=== PATIENT | male | born 1960 | race African-American/Black ===

== ENCOUNTER → 2017-03-02 | Outpatient (CLI) | payer BC ==
--- NOTE | 2017-03-02 19:09 | CONS ---
DATE: 03/02/2017 CONSULTATION/NEW PATIENT EVALUATION HISTORY OF PRESENT ILLNESS/SLEEP-WAKE EVALUATION: A 56-year-old gentleman who has been evaluated in the sleep center for possibility of obstructive sleep apnea-hypopnea syndrome. 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 On some of the days, he works from 10:00 a.m. until 6:00 p.m. and on that day he sleeps from 8:00 p.m. until 6:00 or 7:00 a.m. and on other days week by week, he works from 7:00 p.m. until 5:00 a.m. and on these days, he sleeps from around 6:00 a.m. until 1:00 to 2:00 p.m. FALLING ASLEEP: In any case, he does not have any problem with falling asleep. DURING SLEEP: He sleeps with his with occasional snoring. No witnessed episodes of sleep apnea have been observed. He denied significant amount of awakenings from sleep. DURING THE DAY/WAKE STATE: Slater sleepiness scale is 2 and he denied any sleepiness. PAST MEDICAL HISTORY: Positive for hypertension, acid reflux. PAST SURGICAL HISTORY: Vasectomy, tonsillectomy. MEDICATIONS: 1. Omeprazole. 2. Lisinopril. SOCIAL HISTORY: Negative for smoking. Alcohol consumption very rarely. REVIEW OF SYSTEMS: Basically negative. FAMILY HISTORY: Cancer, diabetes. PHYSICAL EXAMINATION: GENERAL: A 56-year-old -[place] gentleman without distress. VITAL SIGNS: BP 125/70, HR 98, RR 16. Height 5 feet 6-1/2 inches. Weight 222. BMI 35. Neck 16 inches in circumference. Temp is 98.4, oxygen saturation at room air 98%. HEENT: PERRLA, EOMI. Evaluation of oropharynx showed tongue protrudes midline, extremely low position of soft palate. NECK: Supple. No JVD. Thyroid is not palpable. LUNGS: Clear to percussion and to auscultation. Good air exchange. No wheezing or rhonchi. HEART: S1, S2 regular. No murmurs, gallops or rubs. ABDOMEN: Slightly obese, soft and nontender. Bowel sounds are present. No organomegaly appreciated. EXTREMITIES: No clubbing or cyanosis. EDITING INTERNSHIP: Awake, alert, and oriented x3. Cranial nerves 2 to 7 intact. There is no fasciculation or atrophy noted. No focal deficits observed. IMPRESSION: 1. Occasional snoring, extremely low position of soft palate, obesity, possible obstructive sleep apnea-hypopnea syndrome. 2. Obesity; body mass index 35. 3. Hypertension. 4. Acid reflux. 5. Status post vasectomy. PLAN: 1. Polysomnography for evaluation of patient's breathing during sleep. 2. CPAP/BiPAP titration if sleep study confirms obstructive sleep apnea-hypopnea syndrome. 3. Preferable position during sleep on the side. 4. No driving if patient feels any sleepiness. Patient is aware of civil and criminal liability for unsafe driving. 5. I will see patient for follow-up visit to explain results of the testing and following plan. Thank you very much for referring this patient for consultation. Sincerely, Colin Lino MD, PhD, FAASM. Diplomat of [place] [employer], Sleep Medicine Board by [place] [employer] [place] [employer] Quality Assurance/R&D Lab Technician of [facility] [place]
== END ==
LOC: SLEEP 14:55
PROVIDERS: ATTEND Internal Medicine
DX: R06.83 Snoring (principal); E66.9 Obesity, unspecified; I10 Essential (primary) hypertension; K21.9 Gastro-esophageal reflux disease without esophagitis; Z68.35 Body mass index [BMI] 35.0-35.9, adult; Z98.890 Other specified postprocedural states; Z79.899 Other long term (current) drug therapy
CPT/HCPCS: 99211

== ENCOUNTER 2020-04-22 07:14 | Day surgery (SDC) | payer BC ==
[2020-04-20 10:47] VITALS: BMI 38.7
[~2020-04-22 07:14] MED LIST: LACTATED RINGERS 1,000 ML IV SCH; LIDOCAINE 1% (10MG/ML) FOR IV START INTRADERMA PRN
[2020-04-22] MEDS ORDERED: LACTATED RINGERS 1,000 ML IV ONE (07:41)
[2020-04-22] MEDS ORDERED: PROPOFOL 10 MG/ML 20 ML VIAL IV ONE (08:02)
--- NOTE | 2020-04-22 08:04 | P.GSHP ---
History of Present Illness H&P Date: 04/22/20 CHIEF COMPLAINT: Colon screen HISTORY OF PRESENT ILLNESS: The patient is a 59-year-old male who presents for colon screen. Lower endoscopy was offered for further evaluation and management. PAST MEDICAL HISTORY: Please see list. PAST SURGICAL HISTORY: Please see list. MEDICATIONS: Please see list. ALLERGIES: Please see list. SOCIAL HISTORY: No illicit drug use FAMILY HISTORY: No reports of Crohn disease or ulcerative colitis. REVIEW OF ORGAN SYSTEMS: CONSTITUTIONAL: No reports of fevers or chills. PHYSICAL EXAM: VITAL SIGNS: Stable GENERAL: Well-developed pleasant in no acute distress. HEENT: No scleral icterus. Extraocular movements grossly intact. Moist buccal mucosa. NECK: Supple without lymphadenopathy. CHEST: Unlabored respirations. Equal bilateral excursions. CARDIOVASCULAR: Regular rate and rhythm. Distal 2+ pulses. ABDOMEN: Soft, nontender, nondistended. MUSCULOSKELETAL: No clubbing, cyanosis, or edema. ASSESSMENT: 1. Colon screen. PLAN: 1. Recommend proceeding with a lower endoscopy Past Medical History Past Medical History: Diabetes Mellitus, GERD/Reflux, Hyperlipidemia, Hypertension History of Any Multi-Drug Resistant Organisms: None Reported Past Surgical History: Tonsillectomy Additional Past Surgical History / Comment(s): COLONOSCOPY Past Anesthesia/Blood Transfusion Reactions: No Reported Reaction Smoking Status: Never smoker - Past Family History Father Family Medical History: Cancer Medications and Allergies Home Medications Medication Instructions Recorded Confirmed Type Atorvastatin [Lipitor] 40 mg PO DAILY 04/20/20 04/20/20 History Lisinopril 20 mg PO DAILY 04/20/20 04/20/20 History Omeprazole 20 mg PO DAILY 04/20/20 04/20/20 History metFORMIN HCL [Glucophage] 500 mg PO HS 04/20/20 04/20/20 History Allergies Allergy/AdvReac Type Severity Reaction Status Date / Time No Known Allergies Allergy Verified 04/20/20 10:24 Surgical - Exam Vital Signs Temp Pulse Resp BP Pulse Ox 97.8 F 78 18 189/78 98 04/22/20 07:34 04/22/20 07:34 04/22/20 07:34 04/22/20 07:34 04/22/20 07:34
--- NOTE | 2020-04-22 08:27 | P.PCN ---
Date of Procedure: 04/22/20 Description of Procedure: PREOPERATIVE DIAGNOSIS: Colonoscopy screening. POSTOPERATIVE DIAGNOSIS: Midtransverse colon polyp OPERATION: Colonoscopy to the cecum Colonoscopy with cold forceps biopsy midtransverse colon SURGEON: Jinny Joseph MD. ANESTHESIA: MAC. INDICATIONS: The patient is a 59-year-old male who presents for colonoscopy screening. Last colonoscopy over 5 years. Benefits and risks were described and informed consent was obtained. DESCRIPTION OF PROCEDURE: The patient had undergone Suprep. He had been brought into the operating room and laid in the left lateral decubitus position. After adequate intravenous sedation, the rectum was examined with 2% lidocaine jelly. No external hemorrhoids were encountered. The rectal tone was within normal limits. No lesions were palpated in the rectal vault. An Olympus colonoscope was advanced to the cecum. The prep was excellent with clear visualization of the mucosal folds. The scope was removed with visualization of each mucosal fold. No scattered diverticulosis was encountered. At the mid transverse colon, 3 mm hyperplastic polyp was excised with cold forceps. No evidence of focal colitis was found. Retroflexion of the scope demonstrated grade 1 internal hemorrhoids without active bleeding or inflammation. The colon was desufflated. The patient had tolerated the procedure well. Withdrawal time was over 6 minutes. FINDINGS: Aronchick preparation quality scale 1 (1-5) No internal hemorrhoids No external prolapsed hemorrhoids. No arteriovenous malformations. At the mid transverse colon, 3 mm hyperplastic polyp was excised with cold forceps. No focal colitis. RECOMMENDATIONS: Recommend cologaurd in 5 years, 2024 Plan - Discharge Summary Discharge Rx Participant: No New Discharge Prescriptions: Continue metFORMIN HCL [Glucophage] 500 mg PO HS Atorvastatin [Lipitor] 40 mg PO DAILY Lisinopril 20 mg PO DAILY Omeprazole 20 mg PO DAILY Discharge Medication List Atorvastatin [Lipitor] 40 mg PO DAILY 04/20/20 [History] Lisinopril 20 mg PO DAILY 04/20/20 [History] Omeprazole 20 mg PO DAILY 04/20/20 [History] metFORMIN HCL [Glucophage] 500 mg PO HS 04/20/20 [History] Follow up Appointment(s)/Referral(s): Jinny Joseph MD [STAFF PHYSICIAN] - As Needed Patient Instructions/Handouts: Colorectal Polyps (DC), *Surgery [facility] - (Anesthesia) Endoscopy Discharge Instructions Activity/Diet/Wound Care/Special Instructions: Recommend Cologaurd in 5 years, 2024 Discharge Disposition: HOME SELF-CARE
[2020-04-23 15:35] LABS: Glucose,Whole Blood 106 mg/dL (75-99)
[2020-04-23 15:35] LABS: Glucose,Whole Blood 107 mg/dL (75-99)
[2020-04-24 09:17] VITALS: BP 103/64; PULSE 74; RESP 16; TEMP 97.8
--- NOTE | 2020-04-24 15:00 | CDI ---
Date: 04.24.2020 CDS/O And M Supervisor Name: Coby Adams Phone: If any questions, call Breonna Hernandez Sandblast Or Shotblast Equipment Tender at [phone] Patient Name: Catr[address] St Admit Date: 04.22.20 Discharge Date: 04.22.20 ATTENTION: The [facility] Coding Staff appreciate your assistance in clarifying documentation. Please respond to the clarification below the line at the bottom and electronically sign. The [facility] Coding staff will review the response and follow-up if needed. Please note: Queries are made part of the Legal Health Record. If you have any questions, please contact the Sandblast Or Shotblast Equipment Tender. Dear Dr. Joseph In the description of your colonoscopy report he documented retroflexion of the scope demonstrated grade 1 internal hemorrhoid but under findings you documented no internal hemorrhoids. Please document whether grade 1 internal hemorrhoids were found during procedure. Thank you for your kind consideration. Retroflexion of the scope demonstrated no internal hemorrhoids. See corrected report KM 04/24/20 @ 22:59 MTDD
== END 2020-04-22 09:06 | disposition home or self-care (01) ==
LOC: ORWHC2ENDO 07:14
PROVIDERS: ATTEND Surgery Plastic and Reconstructive Surgery
DX: Z12.11 Encounter for screening for malignant neoplasm of colon (principal); D12.3 Benign neoplasm of transverse colon; K63.89 Other specified diseases of intestine; Z86.010 Personal history of colon polyps; E11.9 Type 2 diabetes mellitus without complications; K21.9 Gastro-esophageal reflux disease without esophagitis; E78.5 Hyperlipidemia, unspecified; I10 Essential (primary) hypertension; E66.01 Morbid (severe) obesity due to excess calories; Z68.38 Body mass index [BMI] 38.0-38.9, adult; Z90.89 Acquired absence of other organs; Z98.890 Other specified postprocedural states; Z79.899 Other long term (current) drug therapy; Z79.84 Long term (current) use of oral hypoglycemic drugs; Z80.9 Family history of malignant neoplasm, unspecified
CPT/HCPCS: 45380; 88305; J2704

== ENCOUNTER → 2021-07-16 | Outpatient (CLI) | payer OTHER ==
--- NOTE | 2021-07-16 15:58 | CT ---
EXAMINATION TYPE: CT abdomen pelvis w con DATE OF EXAM: 07/16/2021 COMPARISON: None. HISTORY: diverticulitis CT DLP: 1623.7 mGycm, Automated Exposure Control for Dose Reduction was Utilized. CONTRAST: CT scan of the abdomen and pelvis is performed with oral and with IV Contrast, patient injected with 100 mL of Isovue 300. FINDINGS: LUNG BASES: No significant abnormality is appreciated. LIVER/GB: No significant abnormality is appreciated. PANCREAS: No significant abnormality is seen. SPLEEN: No significant abnormality is seen. ADRENALS: No significant abnormality is seen. KIDNEYS: Symmetric cortical medullary uptake and excretion without hydronephrosis seen bilaterally. BOWEL: The oral contrast reaches level of cecum making evaluation distal bowel slightly suboptimal. N o suspicious small or large bowel dilatation. Terminal ileum appears within normal limits coronal kaur ge 55. No diverticulosis or CT evidence for acute diverticulitis. PROSTATE/SEMINAL VESICLES: Prostate gland upper limits of normal in size. Some scattered bilateral pe lvic phleboliths. LYMPH NODES: No greater than 1cm abdominal or pelvic lymph nodes are appreciated. OSSEOUS STRUCTURES: Slight grade 1 retrolisthesis L5 on S1. Feygooly-tf-lxdrri disc space narrowing w ith vacuum disc phenomenon L5-S1 level, sclerosis involving the superior S1 vertebra is present. OTHER: Small fat-containing umbilical hernia. IMPRESSION: No CT evidence for significant colonic diverticulosis or acute diverticulitis.
== END | disposition home or self-care (01) ==
LOC: RADCTMAIN 13:04
PROVIDERS: ATTEND Surgery Plastic and Reconstructive Surgery
DX: K42.9 Umbilical hernia without obstruction or gangrene (principal)
CPT/HCPCS: 82565; 84520; 74177; 36415; Q9967

== ENCOUNTER 2021-08-04 06:39 | Day surgery (SDC) | payer BC, OTHER ==
[2021-07-30 10:57] VITALS: BMI 38.1
[2021-08-04] MEDS ORDERED: LACTATED RINGERS 1,000 ML IV SCH (07:19)
[2021-08-04 08:02] VITALS: TEMP 97.1
[2021-08-04] MEDS ORDERED: LIDOCAINE 1% (10MG/ML) FOR IV START INTRADERMA ONE (08:08)
[2021-08-04 08:09] LABS: Glucose,Whole Blood 91 mg/dL (75-99)
[2021-08-04] MEDS ORDERED: PROPOFOL 10 MG/ML 20 ML VIAL IV ONE (08:30)
--- NOTE | 2021-08-04 08:36 | P.GSHP ---
History of Present Illness H&P Date: 08/04/21 CHIEF COMPLAINT: Colon screen HISTORY OF PRESENT ILLNESS: The patient is a 60-year-old male who presents for colon screen. Lower endoscopy was offered for further evaluation and management. PAST MEDICAL HISTORY: Please see list. PAST SURGICAL HISTORY: Please see list. MEDICATIONS: Please see list. ALLERGIES: Please see list. SOCIAL HISTORY: No illicit drug use FAMILY HISTORY: No reports of Crohn disease or ulcerative colitis. REVIEW OF ORGAN SYSTEMS: CONSTITUTIONAL: No reports of fevers or chills. PHYSICAL EXAM: VITAL SIGNS: Stable GENERAL: Well-developed pleasant in no acute distress. HEENT: No scleral icterus. Extraocular movements grossly intact. Moist buccal mucosa. NECK: Supple without lymphadenopathy. CHEST: Unlabored respirations. Equal bilateral excursions. CARDIOVASCULAR: Regular rate and rhythm. Distal 2+ pulses. ABDOMEN: Soft, nontender, nondistended. MUSCULOSKELETAL: No clubbing, cyanosis, or edema. ASSESSMENT: 1. Colon screen. PLAN: 1. Recommend proceeding with a lower endoscopy Past Medical History Past Medical History: Diabetes Mellitus, GERD/Reflux, Hyperlipidemia, Hypertension, Seizure Disorder Additional Past Medical History / Comment(s): seizures as child, hx migraines, History of Any Multi-Drug Resistant Organisms: None Reported Past Surgical History: Tonsillectomy Additional Past Surgical History / Comment(s): COLONOSCOPY, Past Anesthesia/Blood Transfusion Reactions: No Reported Reaction Smoking Status: Never smoker - Past Family History Father Family Medical History: Cancer Medications and Allergies Home Medications Medication Instructions Recorded Confirmed Type Atorvastatin [Lipitor] 40 mg PO DAILY 04/20/20 08/04/21 History Omeprazole 20 mg PO DAILY 04/20/20 08/04/21 History lisinopriL 20 mg PO DAILY 04/20/20 08/04/21 History metFORMIN HCL [Glucophage] 500 mg PO HS 04/20/20 08/04/21 History Metoprolol Succinate (ER) [Toprol 25 mg PO DAILY 07/30/21 08/04/21 History XL] Allergies Allergy/AdvReac Type Severity Reaction Status Date / Time No Known Allergies Allergy Verified 08/04/21 07:51 Surgical - Exam Vital Signs Temp Pulse Resp BP Pulse Ox 97.1 F L 62 16 177/90 98 08/04/21 07:56 08/04/21 07:56 08/04/21 07:56 08/04/21 07:56 08/04/21 07:56
--- NOTE | 2021-08-04 08:58 | P.PCN ---
Date of Procedure: 08/04/21 Description of Procedure: PREOPERATIVE DIAGNOSIS: Hematochezia Family history colon cancer POSTOPERATIVE DIAGNOSIS: Hematochezia Family history colon cancer OPERATION: Colonoscopy to the cecum, ileocecal valve and appendiceal orifice. SURGEON: Jinny Joseph MD. ANESTHESIA: MAC. INDICATIONS: The patient is a 60-year-old male who presents with rectal bleeding and family history of colon cancer. Benefits and risks were described and informed consent was obtained. DESCRIPTION OF PROCEDURE: The patient had undergone Sutab prep. The patient had been brought into the operating room and laid in the left lateral decubitus position. After adequate intravenous sedation, the rectum was examined with 2% lidocaine jelly. The prostate was without nodularity. No external hemorrhoids were encountered. The rectal tone was within normal limits. No lesions were palpated in the rectal vault. An Olympus colonoscope was advanced until the cecum, ileocecal valve and appendiceal orifice were clearly viewed. The prep was good. No scattered diverticulosis was encountered. No colonic polyps were found. No evidence of focal colitis was found. Retroflexion of the scope demonstrated grade 2 internal hemorrhoids without active bleeding or inflammation. The colon was desufflated. The patient had tolerated the procedure well. Withdrawal time was over 6 minutes. FINDINGS: Aronchick preparation quality scale 2 (1-5) Internal hemorrhoids, grade 2 No external prolapsed hemorrhoids. No arteriovenous malformations. No adenomatous polyps. No focal colitis. RECOMMENDATIONS: Lower endoscopy in 3 years, 2023 due to high familial risk. Plan - Discharge Summary Discharge Rx Participant: No New Discharge Prescriptions: Continue metFORMIN HCL [Glucophage] 500 mg PO HS Atorvastatin [Lipitor] 40 mg PO DAILY lisinopriL 20 mg PO DAILY Omeprazole 20 mg PO DAILY Metoprolol Succinate (ER) [Toprol XL] 25 mg PO DAILY Discharge Medication List Atorvastatin [Lipitor] 40 mg PO DAILY 04/20/20 [History] Omeprazole 20 mg PO DAILY 04/20/20 [History] lisinopriL 20 mg PO DAILY 04/20/20 [History] metFORMIN HCL [Glucophage] 500 mg PO HS 04/20/20 [History] Metoprolol Succinate (ER) [Toprol XL] 25 mg PO DAILY 07/30/21 [History] Follow up Appointment(s)/Referral(s): Jinny Joseph MD [STAFF PHYSICIAN] - 08/10/21 Patient Instructions/Handouts: *Surgery [facility] - (Anesthesia) Endoscopy Discharge Instructions, Colonoscopy (DC) Activity/Diet/Wound Care/Special Instructions: Repeat colonoscopy in 3 years, 2023 Discharge Disposition: HOME SELF-CARE
[2021-08-04 09:11] VITALS: BP 137/90; PULSE 56; RESP 16
== END 2021-08-04 09:12 | disposition home or self-care (01) ==
LOC: ORWHC2ENDO 06:39
PROVIDERS: ATTEND Surgery Plastic and Reconstructive Surgery
DX: K92.1 Melena (principal); K64.1 Second degree hemorrhoids; Z80.0 Family history of malignant neoplasm of digestive organs; E11.9 Type 2 diabetes mellitus without complications; I10 Essential (primary) hypertension; E78.5 Hyperlipidemia, unspecified; K21.9 Gastro-esophageal reflux disease without esophagitis; G40.909 Epilepsy, unspecified, not intractable, without status epilepticus; G43.909 Migraine, unspecified, not intractable, without status migrainosus; Z90.89 Acquired absence of other organs; Z79.899 Other long term (current) drug therapy; Z79.84 Long term (current) use of oral hypoglycemic drugs; Z80.9 Family history of malignant neoplasm, unspecified
CPT/HCPCS: 45378; J2704

== ENCOUNTER 2023-09-29 05:35 | Day surgery (SDC) | payer BC, OTHER ==
[~2023-09-29 05:35] MED LIST changes: +ACETAMINOPHEN TAB 500 MG TAB PO PRN; -LACTATED RINGERS 1,000 ML IV SCH; -LIDOCAINE 1% (10MG/ML) FOR IV START INTRADERMA PRN; +MELOXICAM 7.5 MG TAB PO PRN; +ONDANSETRON 4 MG/2 ML VIAL IVP PRN; +[UNRECOGNIZED DRUG - REMARK] MISCELLANE ONE
[2023-09-29] MEDS ORDERED: DEXAMETHASONE SOD PHOSPHATE 4 MG/ML 1 ML VIAL IV ONE (06:11)
[2023-09-29] MEDS ORDERED: droPERidol 5 MG/2 ML VIAL IVP ONE (06:11)
[2023-09-29] MEDS ORDERED: ONDANSETRON 4 MG/2 ML VIAL IVP ONE (06:11)
[2023-09-29] MEDS ORDERED: LIDOCAINE 1% (10MG/ML) FOR IV START INTRADERMA PRN (06:11)
[2023-09-29] MEDS ORDERED: LACTATED RINGERS 1,000 ML IV SCH (06:11)
[2023-09-29] MEDS ORDERED: LACTATED RINGERS 1,000 ML IV ONE ×2 (06:15→09:58)
[2023-09-29] MEDS ORDERED: TAMSULOSIN 0.4 MG CAP.ER.24H PO STA (06:32)
--- NOTE | 2023-09-29 06:32 | P.GSHP ---
History of Present Illness H&P Date: 09/29/23 CHIEF COMPLAINT: Ventral hernia HISTORY OF PRESENT ILLNESS: The patient is a 62-year-old male presents with a history of swelling and pain along the abdomen from a hernia of the abdomen. Symptoms have been present for over 6 months. Now he presents for surgical intervention. PAST MEDICAL HISTORY: Please see list. PAST SURGICAL HISTORY: Please see list. MEDICATIONS: Please see list. ALLERGIES: Please see list. SOCIAL HISTORY: No illicit drug use FAMILY HISTORY: No reports of Crohn disease or ulcerative colitis. REVIEW OF ORGAN SYSTEMS: CONSTITUTIONAL: Denies any fever or chills. Denies recent weight loss or weight gain. HEENT: Denies any trouble with vision, hearing or nosebleeds. No difficulty swallowing. LYMPHATIC: The patient denies any lumps and bumps around the neck. ENDOCRINE: Denies any thyroid disorders. Denies any blood sugar glucose intolerance. RESPIRATORY: Denies pneumonia. Denies any troubles with breathing or dyspnea on exertion. CARDIOVASCULAR: Denies any chest pain, palpitations, or recent heart attacks. GASTROINTESTINAL: Denies heart burn, constipation or bright red blood per rectum. GENITOURINARY: Denies any blood in urine or increased urinary frequency. MUSCULOSKELETAL: Denies any back pain, stiffness, joint arthritis. NEUROLOGIC: Denies any numbness or tingling along the distal extremities. No seizure disorders or headaches. PSYCHIATRIC: Denies depression or suidical ideation. HEMATOLOGIC: Denies any abnormal bleeding or bruising. BREASTS: Denies any breast lumps, pain or nipple discharge. PHYSICAL EXAM: GENERAL: Well-developed pleasant male in no acute distress. HEENT: No scleral icterus. Extraocular movements grossly intact. Moist buccal mucosa. NECK: Supple without lymphadenopathy. CHEST: Unlabored respirations. Equal bilateral excursions. CARDIOVASCULAR: Regular rate and rhythm. Distal 2+ pulses. ABDOMEN: Soft, nondistended. Palpable defect of the abdomen. No peritoneal signs. MUSCULOSKELETAL: No clubbing, cyanosis, or edema. SKIN: Well perfused. PSYCH: Alert and oriented to self, place and time ASSESSMENT: 1. Ventral hernia PLAN: 1. Recommend proceeding with robotic ventral hernia repair with mesh. 2. Benefits and risks of surgical intervention was discussed including possibility of open technique. 3. DVT prophylaxis. 4. Antibiotic prophylaxis. 5. Non narcotic pain management including abdominal wall block described 6. Blood sugar glucose described. 7. Weight loss management described. 8. EKG for pre-surgical screening previously described due to hypertensive heart disease. Past Medical History Past Medical History: Diabetes Mellitus, GERD/Reflux, Hyperlipidemia, Hypertension History of Any Multi-Drug Resistant Organisms: None Reported Past Surgical History: Tonsillectomy Additional Past Surgical History / Comment(s): COLONOSCOPY Past Anesthesia/Blood Transfusion Reactions: No Reported Reaction Smoking Status: Never smoker - Past Family History Father Family Medical History: Cancer Medications and Allergies Home Medications Medication Instructions Recorded Confirmed Type Atorvastatin [Lipitor] 40 mg PO DAILY 04/20/20 09/29/23 History Omeprazole 20 mg PO DAILY 04/20/20 09/29/23 History lisinopriL 20 mg PO DAILY 04/20/20 09/29/23 History metFORMIN HCL [Glucophage] 500 mg PO HS 04/20/20 09/29/23 History Metoprolol Succinate (ER) [Toprol 25 mg PO DAILY 07/30/21 09/29/23 History XL] Allergies Allergy/AdvReac Type Severity Reaction Status Date / Time No Known Allergies Allergy Verified 09/29/23 06:17
[2023-09-29 06:45] LABS: Glucose,Whole Blood 97 mg/dL (70-110)
[2023-09-29] MEDS ORDERED: MIDAZOLAM 2 MG/2 ML VIAL IVP ONE (06:54)
[2023-09-29 06:57] LABS: Basophils % (A) 1 %; Eosinophils # (A) 0.3 k/uL (0-0.7); Eosinophils % (A) 4 %; HCT 41.2 % (39.0-53.0); HGB 13.4 gm/dL (13.0-17.5); Lymphocytes # (A) 1.7 k/uL (1.0-4.8); Lymphocytes % (A) 27 %; MCH 27.7 pg (25.0-35.0); MCHC 32.6 g/dL (31.0-37.0); MCV 84.9 fL (80.0-100.0); Mean Platelet Volume 8.1; Monocytes # (A) 0.4 k/uL (0-1.0); Monocytes % (A) 6 %; Neutrophils # (A) 3.8 k/uL (1.3-7.7); Neutrophils % (A) 60 %; Platelet Count 219 k/uL (150-450); RBC 4.85 m/uL (4.30-5.90); RDW 13.8 % (11.5-15.5); WBC 6.3 k/uL (3.8-10.6)
[2023-09-29] MEDS ORDERED: HYDROmorphone 0.5 MG/0.5 ML SYRINGE IVP PRN (07:00)
[2023-09-29 07:03] LABS: ALT 28 U/L (4-49); African American GFR (CKD) 39 (>60 ml/min/1.73 sqM); Anion Gap 8 mmol/L; Blood Urea Nitrogen 18 mg/dL (9-20); Calcium 9.8 mg/dL (8.4-10.2); Carbon Dioxide 33 mmol/L (22-30); Chloride 99 mmol/L (98-107); Glucose 95 mg/dL (74-99); Non-African American GFR(CKD) 34 (>60 ml/min/1.73 sqM); Sodium 140 mmol/L (137-145)
[2023-09-29 07:05] LABS: AST 35 U/L (17-59); Albumin 4.5 g/dL (3.5-5.0); Alkaline Phosphatase 81 U/L (38-126); Potassium 5.2 mmol/L (3.5-5.1); Total Bilirubin 0.9 mg/dL (0.2-1.3); Total Protein 7.5 g/dL (6.3-8.2)
[2023-09-29] MEDS ORDERED: HYDROmorphone (PF) 1 MG/ML ONE (07:24)
[2023-09-29] MEDS ORDERED: ROCURONIUM 10 MG/ML (5 ML VIAL) IV ONE (07:24)
[2023-09-29] MEDS ORDERED: fentaNYL (PF) 50 MCG/ML 2 ML AMP ONE (07:24)
[2023-09-29] MEDS ORDERED: SODIUM CHLORIDE 0.9% (PF) 10 ML VIAL ONE (07:24)
[2023-09-29] MEDS ORDERED: PROPOFOL 10 MG/ML 20 ML VIAL IV ONE (07:24)
[2023-09-29] MEDS ORDERED: HEPARIN SODIUM,PORCINE 5,000 UNIT/ML 1 ML VIAL ONE (07:24)
[2023-09-29] MEDS ORDERED: DEXAMETHASONE SOD PHOSPHATE 4 MG/ML 1 ML VIAL ONE (07:24)
[2023-09-29] MEDS ORDERED: WATER FOR INJECTION, STERILE 10 ML VIAL IV ONE (07:24)
[2023-09-29] MEDS ORDERED: ROPIVACAINE 5 MG/ML 30 ML VIAL ONE (07:24)
[2023-09-29] MEDS ORDERED: MIDAZOLAM 2 MG/2 ML VIAL ONE (07:24)
[2023-09-29] MEDS ORDERED: KETOROLAC 15 MG/ML 1 ML VIAL ONE (07:24)
[2023-09-29] MEDS ORDERED: NEOSTIGMINE 1 MG/ML 10 ML VIAL ONE (07:24)
[2023-09-29] MEDS ORDERED: PHENYLEPHRINE-0.9% NACL SYG 1,000 MCG/10 ML SYRINGE ONE (07:24)
[2023-09-29] MEDS ORDERED: LIDOCAINE 1% INJ 10MG/ML (20 ML MDV) ONE (07:24)
[2023-09-29] MEDS ORDERED: GLYCOPYRROLATE 0.2 MG/ML 2 ML VIAL ONE (07:24)
[2023-09-29] MEDS ORDERED: ePHEDrine 50 MG/ML 1 ML VIAL ONE (07:24)
[2023-09-29] MEDS ORDERED: KETAMINE HCL IN 0.9 % NACL 50 MG/5 ML SYRINGE ONE (07:24)
[2023-09-29] MEDS ORDERED: LIDOCAINE 0.5%-EPI 1:200,000 50 ML VIAL SQ ONE (07:30)
--- NOTE | 2023-09-29 07:31 | P.HPADDEND ---
H&P Addendum H&P Addendum Date: 09/29/23 Patient reports obtaining EKG at outside institution. He reports he is able to walk up a flight of stairs without chest pain or shortness of breath. He denies any recent cardiac testing or assessment by his PCP this year. He is unaware of his pre-existing renal disease. Pre-op EKG was obtained demonstrating sinus bradycardia otherwise normal EKG. CMP confirms worsening renal functioning. Patient notified of elevated risk of surgery for cardiac and renal complications due to his pre-existing conditions. Patient wished to proceed and witnessed by pre-op nurse, camp housekeeper and community planning technician.
[2023-09-29] MEDS ORDERED: HEPARIN SODIUM,PORCINE 5,000 UNIT/ML 1 ML VIAL SQ STA (07:56)
--- NOTE | 2023-09-29 08:12 | P.ANPRN ---
Procedure Note - Anesthesia - Nerve Block Performed Bilateral Transversus Abdominis Single Time Out Performed: Yes ([id number]) Date of Procedure: 09/29/23 Procedure Start Time: :45 Procedure Stop Time: 06:55 Location of Patient: PreOp Indication: Acute Post-Operative Pain, Dx/Pain Location, Requested by Surgeon Sedation Type: Sedate with meaningful contact maintained Preparation: Sterile Prep Position: Supine Catheter: None Needle Types: Pajunk Needle Gauge: 21 Ultrasound used to visualize needle placement: Yes Ultrasound used to observe medication spread: Yes Injectate: Other (see comment) (20ml 0.25% Ropivcaine per side. total 40ml) Blood Aspirated: No Pain Paresthesia on Injection Noted: No Resistance on Injection: Normal Image Stored and Saved: Yes Events: Uneventful and Well Tolerated
[2023-09-29 10:08] VITALS: TEMP 97.2
[2023-09-29 10:09] VITALS: RESP 16
[2023-09-29 10:10] LABS: Glucose,Whole Blood 137 mg/dL (70-110)
[2023-09-29 10:34] VITALS: BP 128/66; PULSE 91
--- NOTE | 2023-10-16 18:20 | P.OP ---
Date of Procedure: 09/29/23 Description of Procedure: SURGEON: JINNY JOSEPH MD PREOPERATIVE DIAGNOSES: 1. Initial epigastric ventral hernia with incarceration 2. Morbid obesity due to excess calories, BMI 38.1 3. Hypertensive heart disease 4. Diabetes type 2, [id number] 5. Hyperlipidemia 6. Gastroesophageal reflux disease POSTOPERATIVE DIAGNOSES: 1. Initial epigastric ventral hernia with incarceration 2. Morbid obesity due to excess calories, BMI 38.1 3. Hypertensive heart disease 4. Diabetes type 2, [id number] 5. Hyperlipidemia 6. Gastroesophageal reflux disease OPERATION: 1. Robotic-assisted da Garfield Xi laparoscopic repair of initial incarcerated epigastric ventral hernia with mesh, ventralight ST mesh 11.4 cm Anesthesia: GETA, regional, local Estimated Blood Loss (ml): 5 Pathology: 1. Incarcerated upper midline ventral hernia defect COMPLICATIONS: None. Operative Findings: 1. Upper midline epigastric ventral hernia defect 4 x 3 cm 2. Fascia repaired using #1 V-lock suture INDICATIONS: The patient is a 62-year-old male who presents with a personal h istory of abdominal wall hernias. Surgical intervention with laparoscopic versus robotic and open techniques were reviewed. Placement of mesh was also reviewed. Benefits and risks were thoroughly described. Informed consent was obtained. DESCRIPTION OF PROCEDURE: The patient was brought into the operating room and laid in supine position. After general induction, the abdomen had been prepped and draped in standard sterile fashion. Ioban draping was also placed. Prior to incision, a timeout protocol was confirmed with surgical team regarding the patient's name including procedures to be performed. The robot was primed prior to the procedure. A field block using local anesthetic was placed along hernia site including the proposed port sites. Initial incision was made with an #11 blade along the left upper quadrant. A 0 degree 5 mm laparoscopic trocar entry was performed and insufflated. Three 8 mm ports were placed along the left lateral abdominal wall under direct localiz ation after exchanging the 5-mm for an 8 mm port. Placements of the ports were 15 cm from the target anatomy and 10 cm apart. An accessory 12 mm port was placed at the right upper quadrant for exchange of mesh including sutures. The [employer] Xi robot was previously primed, prepped and draped then docked from the right side of the patient onto the left side of the patient. I then sat at the robot [employer] Xi console where working arms of the robot including Bovie cautery connected to robotic scissors, needle dedicated truck driver, and graspers placed by the regulatory assistant. Incarcerated omental contents were found along the upper midline defect. The defects were reduced with preperitoneal fat including the falciform ligament at the upper midline defect. Two distinct fascial defects were found: Upper mi dline defect 4 x 3 cm. The incarcerated contents were reduced as the peritoneal fat was cleaned from the abdominal wall. Next, hemostasis was checked with cautery. The hernia defects were oversewn using #1 nonabsorbable V-lock suture for each defect separately with fascial imbrication x 2. Next, ventralight ST mesh 11.4 cm was placed with the rough side towards the abdominal wall as to cover the epigastric defect. 2-0 VLOC 9 inch sutures were used to fixate the mesh. A final endoscopic imaging was obtained. All instruments and pneumoperitoneum were evacuated from the abdominal cavity. The da Garfield Xi robot was undocked from the patient. I re-scrubbed into the case for closure of incisions. The fascia of the 12-mm port was probed and less than 8-mm in size. The incisions were reapproximated using 4-0 Monocryl in an interrupted subcuticular fashion. Liquid glue was applied to the skin after cleansing the skin with normal saline and dilute hydrogen peroxide. An abdominal binder was placed. At the end of the procedure, needle, sponge, and instrument count had been verified correct by surgical asst. The patient was taken to the postanesthesia care unit in stable condition. Plan - Discharge Summary Discharge Rx Participant: Yes New Discharge Prescriptions: New Cyclobenzaprine [Flexeril] 10 mg PO TID #30 tab Simethicone [Gas-X] 125 mg PO AC-TID PRN #20 capsule PRN Reason: Pain Acetaminophen Tab [Tylenol Tab] 1,000 mg PO Q6HR PRN #30 tablet PRN Reason: Pain Continue metFORMIN HCL [Glucophage] 500 mg PO HS Atorvastatin [Lipitor] 40 mg PO DAILY lisinopriL 20 mg PO DAILY Omeprazole 20 mg PO DAILY Metoprolol Succinate (ER) [Toprol XL] 25 mg PO DAILY Discharge Medication List Atorvastatin [Lipitor] 40 mg PO DAILY 04/20/20 [History] Omeprazole 20 mg PO DAILY 04/20/20 [History] lisinopriL 20 mg PO DAILY 04/20/20 [History] metFORMIN HCL [Glucophage] 500 mg PO HS 04/20/20 [History] Metoprolol Succinate (ER) [Toprol XL] 25 mg PO DAILY 07/30/21 [History] Acetaminophen Tab [Tylenol Tab] 1,000 mg PO Q6HR PRN #30 tablet 09/29/23 [Rx] Cyclobenzaprine [Flexeril] 10 mg PO TID #30 tab 09/29/23 [Rx] Simethicone [Gas-X] 125 mg PO AC-TID PRN #20 capsule 09/29/23 [Rx] Follow up Appointment(s)/Referral(s): Jinny Joseph MD [STAFF PHYSICIAN] - 10/03/23 (TELEHEALTH) Patient Instructions/Handouts: *[facility] - Managing Your Pain After Surgery Without Opioids, *[facility] - (Anesthesia) Discharge Instructions Outpatient Surgery, Laparoscopic Herniorrhaphy (IP), Abdominal Binder (ED) Activity/Diet/Wound Care/Special Instructions: No lifting for 4 pounds in 4 weeks, Oct 30 Using antibacterial soap. May shower. No bathtub soaks for 2 weeks, Oct 13 Wear abdominal binder daily for comfort except for showering. Use ice along incisions for today to prevent swelling. Use Tylenol, simethicone and flexeril scheduled for the next 24-48 hours for best pain relief. Discharge Disposition: HOME SELF-CARE
== END 2023-09-29 11:23 | disposition home or self-care (01) ==
LOC: OR 05:35
PROVIDERS: ATTEND Surgery Plastic and Reconstructive Surgery
DX: K43.6 Other and unspecified ventral hernia with obstruction, without gangrene (principal); E11.9 Type 2 diabetes mellitus without complications; K21.9 Gastro-esophageal reflux disease without esophagitis; E78.5 Hyperlipidemia, unspecified; E66.01 Morbid (severe) obesity due to excess calories; I11.9 Hypertensive heart disease without heart failure; G89.18 Other acute postprocedural pain; Z79.84 Long term (current) use of oral hypoglycemic drugs; Z79.899 Other long term (current) drug therapy; Z68.38 Body mass index [BMI] 38.0-38.9, adult
CPT/HCPCS: 49596; S2900; 64488; 80053; 85025; 88302